=== PATIENT | male | born 1940 | race Caucasian/White ===

== ENCOUNTER 2021-06-07 15:35 | Outpatient (CLI) | payer MEDICARE, OTHER | END 2021-06-07 15:36 | disposition home or self-care (01) | LOC: NAV RAD 15:35 | DX: Z01.818 Encounter for other preprocedural examination (principal); I65.21 Occlusion and stenosis of right carotid artery | CPT/HCPCS: 71046 ==

== ENCOUNTER 2023-05-22 16:22 | Emergency (ER) | payer MEDICARE, OTHER | END 2023-05-22 17:08 | disposition home or self-care (01) | LOC: NAV ERS 16:22 | DX: M67.431 Ganglion, right wrist (principal) | CPT/HCPCS: 99283 ==

== ENCOUNTER 2024-03-26 15:30 | Emergency (ER) | payer OTHER ==
[2024-03-26] MEDS ORDERED: traMADol HCl 50 MG TAB ONE (16:31)
== END 2024-03-26 18:30 | disposition home or self-care (01) ==
LOC: NAV ERS 15:30
DX: T23.202A Burn of second degree of left hand, unspecified site, initial encounter (principal); T23.201A Burn of second degree of right hand, unspecified site, initial encounter; T20.26XA Burn of second degree of forehead and cheek, initial encounter; T20.212A Burn of second degree of left ear [any part, except ear drum], initial encounter; T20.211A Burn of second degree of right ear [any part, except ear drum], initial encounter; T31.0 Burns involving less than 10% of body surface; I10 Essential (primary) hypertension; Z79.899 Other long term (current) drug therapy; Z79.82 Long term (current) use of aspirin; Z23 Encounter for immunization; X03.8XXA Other exposure to controlled fire, not in building or structure, initial encounter; Y92.009 Unspecified place in unspecified non-institutional (private) residence as the place of occurrence of the external cause
CPT/HCPCS: 16020; 90471